=== PATIENT | female | born 1960 | race Two or more races ===

== ENCOUNTER 2023-04-24 20:05 | Inpatient (IN) | payer OTHER ==
[2023-04-24 20:29] VITALS: BMI 18.8
[2023-04-24] MEDS ORDERED: NALOXONE HCL 0.4 MG/ML VIAL IM PRN (22:35)
[2023-04-24] MEDS ORDERED: BENZONATATE 200 MG CAPSULE PO PRN (22:35)
[2023-04-24] MEDS ORDERED: POLYETHYLENE GLYCOL (HEALTHYLAX) 3350 17 GM PACKET PO PRN (22:35)
[2023-04-24] MEDS ORDERED: LOPERAMIDE HCL 2 MG CAPSULE PO PRN (22:35)
[2023-04-24] MEDS ORDERED: NALOXONE HCL (KLOXXADO) 8 MG SPRAY NS PRN (22:35)
[2023-04-24] MEDS ORDERED: IBUPROFEN 400 MG TABLET (FP) PO PRN (22:35)
[2023-04-24] MEDS ORDERED: MAG HYDROX/AL HYDROX/SIMETH 30 ML UNIT-DOSE CUP PO PRN (22:35)
[2023-04-24] MEDS ORDERED: guaiFENesin 600 MG TABLET.ER (FP) PO PRN (22:35)
[2023-04-24] MEDS ORDERED: MAGNESIUM HYDROX 2400MG/30ML ORAL SUSPENSION 30 ML CUP PO PRN (22:35)
[2023-04-24] MEDS ORDERED: NICOTINE POLACRILEX 2 MG GUM BUC PRN (22:35)
[2023-04-24] MEDS ORDERED: DICYCLOMINE HCL 10 MG CAPSULE PO PRN (22:35)
[2023-04-24] MEDS ORDERED: BENZOCAINE/MENTHOL (CHLORASEPTIC ) LOZENGE MM PRN (22:35)
[2023-04-24] MEDS ORDERED: ACETAMINOPHEN 325 MG TABLET (FP) PO PRN (22:35)
[2023-04-24] MEDS ORDERED: BISMUTH SUBSALICYLATE 524 MG/30 ML PO PRN (22:35)
[2023-04-24] MEDS ORDERED: ONDANSETRON *ODT* 4 MG TABLET SL PRN (22:35)
[2023-04-25] MEDS: METHOCARBAMOL 500 MG TABLET PO PRN ×2 (07:18→22:29)
[2023-04-25] MEDS: IBUPROFEN 600 MG TABLET (FP) PO PRN (07:18)
[2023-04-25] MEDS ORDERED: ALBUTEROL SO4 HFA INHALER IH PRN (08:00)
[2023-04-25] MEDS ORDERED: cloNIDine HCL 0.1 MG TABLET PO ONE (08:52)
[2023-04-25] MEDS ORDERED: BUPRENORPHINE HCL 150 MCG, BUPRENORPHINE HCL 75 MCG BC PRN (08:52)
[2023-04-25] MEDS ORDERED: BUPRENORPHINE HCL 150 MCG, BUPRENORPHINE HCL 75 MCG BC ONE (08:52)
[2023-04-25] MEDS: PRENATAL VITAMINS W/ FOLIC ACID TABLET (FP) PO SCH (09:46)
[2023-04-25] MEDS: NICOTINE 14 MG/24 HOURS TOPICAL PATCH TD SCH (09:46)
[2023-04-25 12:32] LABS: HEMOGLOBIN 11.3 GM/dL (10.7-15.3); MCH 29.7 pg (25.7-33.7); MCHC 32.3 g/dl (32.0-36.0); MEAN CELL VOLUME 91.9 fl (80-96); MEAN PLT VOLUME 7.9 fl (7.5-11.1); PLATELET COUNT 266 10^3/uL (134-434); RBC 3.81 M/mm3 (3.60-5.2); RDW 14.8 % (11.6-15.6); WHITE BLOOD COUNT 6.7 K/mm3 (4.0-10.0)
[2023-04-25 12:43] LABS: POTASSIUM 3.6 mmol/L (3.5-5.1)
[2023-04-25 12:49] LABS: CALCIUM 8.9 mg/dL (8.5-10.1)
[2023-04-25 12:50] LABS: ALBUMIN 2.8 g/dl (3.4-5.0); BLOOD UREA NITROGEN 21.9 mg/dL (7-18)
[2023-04-25] MEDS ORDERED: cloNIDine HCL 0.1 MG TABLET PO PRN (12:52)
[2023-04-25 12:53] LABS: CREATININE 0.8 mg/dL (0.55-1.3)
[2023-04-25 12:55] LABS: BILIRUBIN,TOTAL 0.4 mg/dL (0.2-1); TOT PROT 5.6 g/dl (6.4-8.2)
[2023-04-25] MEDS: diazePAM 5 MG TABLET PO PRN (17:48)
[2023-04-25] MEDS: THIAMINE HCL 100 MG TABLET (FP) PO SCH (22:28)
[2023-04-25] MEDS: MELATONIN 5 MG TABLETS PO SCH (22:28)
[2023-04-26] MEDS ORDERED: BUPRENORPHINE HCL 150 MCG, BUPRENORPHINE HCL 75 MCG BC PRN
[2023-04-26] MEDS: BUPRENORPHINE HCL 150 MCG, BUPRENORPHINE HCL 75 MCG BC SCH ×2 (06:02→17:51)
[2023-04-26] MEDS: METHOCARBAMOL 500 MG TABLET PO PRN ×3 (06:06→21:55)
[2023-04-26] MEDS: NICOTINE 14 MG/24 HOURS TOPICAL PATCH TD SCH (10:36)
[2023-04-26] MEDS: PRENATAL VITAMINS W/ FOLIC ACID TABLET (FP) PO SCH (10:36)
[2023-04-26] MEDS: IBUPROFEN 600 MG TABLET (FP) PO PRN ×2 (14:32→20:06)
[2023-04-26] MEDS: THIAMINE HCL 100 MG TABLET (FP) PO SCH (21:55)
[2023-04-26] MEDS: MELATONIN 5 MG TABLETS PO SCH (21:55)
[2023-04-26] MEDS: diazePAM 5 MG TABLET PO PRN (21:57)
[2023-04-27] MEDS: BUPRENORPHINE HCL 450 MCG FILM BC SCH ×2 (05:23→17:36)
[2023-04-27] MEDS: NICOTINE 14 MG/24 HOURS TOPICAL PATCH TD SCH (10:20)
[2023-04-27] MEDS: PRENATAL VITAMINS W/ FOLIC ACID TABLET (FP) PO SCH (10:20)
[2023-04-27] MEDS: diazePAM 5 MG TABLET PO SCH ×2 (12:01→19:15)
[2023-04-27] MEDS: IBUPROFEN 600 MG TABLET (FP) PO PRN (17:38)
[2023-04-27] MEDS: MELATONIN 5 MG TABLETS PO SCH (21:34)
[2023-04-27] MEDS: THIAMINE HCL 100 MG TABLET (FP) PO SCH (21:34)
[2023-04-28] MEDS: METHOCARBAMOL 500 MG TABLET PO PRN (02:23)
[2023-04-28] MEDS: IBUPROFEN 600 MG TABLET (FP) PO PRN ×3 (02:23→22:12)
[2023-04-28] MEDS: diazePAM 5 MG TABLET PO SCH ×3 (06:00→22:11)
[2023-04-28] MEDS: BUPRENORPHINE/NALOXONE 4 MG/1 MG FILM PACKET SL SCH ×2 (06:14→18:05)
[2023-04-28] MEDS: PRENATAL VITAMINS W/ FOLIC ACID TABLET (FP) PO SCH (10:09)
[2023-04-28] MEDS: NICOTINE 14 MG/24 HOURS TOPICAL PATCH TD SCH (10:09)
[2023-04-28] MEDS: MELATONIN 5 MG TABLETS PO SCH (22:11)
[2023-04-28] MEDS: THIAMINE HCL 100 MG TABLET (FP) PO SCH (22:11)
[2023-04-29] MEDS ORDERED: BUPRENORPHINE/NALOXONE 8 MG/2 MG FILM PACKET SL ONE (06:00)
[2023-04-29] MEDS: diazePAM 5 MG TABLET PO SCH ×2 (06:10→13:28)
[2023-04-29] MEDS: METHOCARBAMOL 500 MG TABLET PO PRN (06:12)
[2023-04-29] MEDS: IBUPROFEN 600 MG TABLET (FP) PO PRN (06:15)
[2023-04-29] MEDS: NICOTINE 14 MG/24 HOURS TOPICAL PATCH TD SCH (09:35)
[2023-04-29] MEDS: PRENATAL VITAMINS W/ FOLIC ACID TABLET (FP) PO SCH (09:35)
[2023-04-29 10:04] VITALS: RESP 18; TEMP 97.7
[2023-04-29 13:39] VITALS: BP 109/70; PULSE 86
== END 2023-04-29 02:10 | disposition other institution (70) | DRG 773 ==
LOC: YASAS 20:05 → Y3N 04-25 01:22
PROVIDERS: ADMIT Allergy & Immunology; ATTEND Allergy & Immunology
PROC: HZ2ZZZZ Detoxification Services for Substance Abuse Treatment (ICD-10-PCS; principal; 2023-04-25)
DX: F11.23 Opioid dependence with withdrawal (principal); F10.230 Alcohol dependence with withdrawal, uncomplicated; F14.20 Cocaine dependence, uncomplicated; F17.210 Nicotine dependence, cigarettes, uncomplicated; F19.24 Other psychoactive substance dependence with psychoactive substance-induced mood disorder; M25.511 Pain in right shoulder; M54.30 Sciatica, unspecified side; R63.4 Abnormal weight loss; R29.6 Repeated falls; Z99.89 Dependence on other enabling machines and devices; Z86.718 Personal history of other venous thrombosis and embolism
CPT/HCPCS: 36415; 80053; 85027; 86780; 87635; 93005; 93010